=== PATIENT | male | born 1995 | race Caucasian/White ===

== ENCOUNTER 2017-09-24 00:40 | Emergency (ER) | payer SELFPAY ==
[~2017-09-24] VITALS: Ht 180.3 cm; Wt 127.0 kg
[2017-09-24 00:45] VITALS: BP 203/106; PULSE 123; RESP 14; TEMP 97.7; O2SAT 98
[2017-09-24 01:03] VITALS: BP 155/81; PULSE 103; RESP 18; O2SAT 97
--- NOTE | 2017-09-24 01:08 | PD ---
HPI Chief Complaint: Chest Pain Time Seen by Provider: 01:03 Travel History International Travel<30 days: No Contact w/Intl Traveler<30days: No Traveled to known affect area: No History of Present Illness HPI Patient is a 21-year-old male that comes in stating that he has no allergies to medication, no surgical history, and only medical history is hypertension. He states that he has been on lisinopril before but he is run out of it and he has not refilled it in several months. Now the patient comes in stating that he is noted that his blood pressure has been elevated today was 155/81. And the patient has been complaining of a constant chest discomfort, entire chest area, over the past 2 days, has been described as continuous, and made worse after smoking, rates it 5 out of 10. Patient denies any alleviating factors. Patient denies any associated factors such as fever, rash, trauma to his chest, abdominal pain, flank or back pain, nausea, vomiting, diarrhea, dysuria/urgency/hematuria present. PFSH Past Medical History Cardiovascular Problems: Yes (HTN, factor V disorder, Murmor) Hypertension: Yes Past Surgical History Surgical History: No Previous Surgery Social History Alcohol Use: No Tobacco Use: Yes (/2 PPD) Substance Use: Yes (Marijuana) Allergies-Medications (Allergen,Severity, Reaction): Coded Allergies: No Known Drug Allergies (Verified Allergy, Unknown, 09/24/17) Review of Systems General / Constitutional: No: Fever Eyes: No: Visual changes HENT: No: Headaches Cardiovascular: Positive: Chest Pain or Discomfort, Palpitations Respiratory: No: Shortness of Breath Gastrointestinal: No: Abdominal Pain Genitourinary: No: Dysuria Musculoskeletal: No: Pain Skin: No Rash Neurologic: No: Weakness Psychiatric: No: Depression Endocrine: No: Polydipsia Hematologic/Lymphatic: No: Easy Bruising Physical Exam Narrative GENERAL: SKIN: Warm and dry. HEAD: Atraumatic. Normocephalic. EYES: Pupils equal and round. No scleral icterus. No injection or drainage. ENT: No nasal bleeding or discharge. Mucous membranes pink and moist. NECK: Trachea midline. No JVD. CARDIOVASCULAR: Regular rate and rhythm. RESPIRATORY: No accessory muscle use. Clear to auscultation. Breath sounds equal bilaterally. GASTROINTESTINAL: Abdomen soft, non-tender, nondistended MUSCULOSKELETAL: Extremities without clubbing, cyanosis, or edema. No obvious deformities. Reproducible chest wall pain on palpation NEUROLOGICAL: Awake and alert. No obvious cranial nerve deficits. Motor grossly within normal limits. Five out of 5 muscle strength in the arms and legs. Normal speech. PSYCHIATRIC: Appropriate mood and affect; insight and judgment normal. Data Data Last Documented VS Vital Signs Date Time Temp Pulse Resp B/P (MAP) Pulse Ox O2 Delivery O2 Flow Rate FiO2 09/24/17 01:03 103 18 155/81 (105) 97 Room Air 09/24/17 00:45 97.7 Orders Orders Electrocardiogram (09/24/17 01:03) Complete Blood Count With Diff (09/24/17 01:03) Comprehensive Metabolic Panel (09/24/17 01:03) Creatine Kinase (Cpk) (09/24/17 01:03) Lipase (09/24/17 01:03) Urinalysis - C+S If Indicated (09/24/17 01:03) Thyroid Stimulating Hormone (09/24/17 01:03) Iv Access Insert/Monitor (09/24/17 01:03) Ecg Monitoring (09/24/17 01:03) Oximetry (09/24/17 01:03) Drug Screen, Random Urine (09/24/17 01:03) Alcohol (Ethanol) (09/24/17 01:03) Salicylates (Aspirin) (09/24/17 01:03) Tylenol (Acetaminophen) (09/24/17 01:03) Sodium Chlor 0.9% 1000 Ml Inj (Ns 1000 M (09/24/17 01:15) Chest, Pa & Lat (09/24/17 01:41) Troponin I (09/24/17 01:05) Labs Laboratory Tests Test 09/24/17 01:05 White Blood Count 11.6 TH/MM3 Red Blood Count 5.71 MIL/MM3 Hemoglobin 16.2 GM/DL Hematocrit 46.4 % Mean Corpuscular Volume 81.3 FL Mean Corpuscular Hemoglobin 28.3 PG Mean Corpuscular Hemoglobin Concent 34.8 % Red Cell Distribution Width 13.2 % Platelet Count 292 TH/MM3 Mean Platelet Volume 9.0 FL Neutrophils (%) (Auto) 59.6 % Lymphocytes (%) (Auto) 29.4 % Monocytes (%) (Auto) 7.9 % Eosinophils (%) (Auto) 2.6 % Basophils (%) (Auto) 0.5 % Neutrophils # (Auto) 6.9 TH/MM3 Lymphocytes # (Auto) 3.4 TH/MM3 Monocytes # (Auto) 0.9 TH/MM3 Eosinophils # (Auto) 0.3 TH/MM3 Basophils # (Auto) 0.1 TH/MM3 CBC Comment DIFF FINAL Differential Comment Urine Color YELLOW Urine Turbidity HAZY Urine pH 5.0 Urine Specific [place] 1.029 Urine Protein 100 mg/dL Urine Glucose (UA) NEG mg/dL Urine Ketones NEG mg/dL Urine Occult Blood NEG Urine Nitrite NEG Urine Bilirubin NEG Urine Urobilinogen 4.0 OR GREATER mg/dL Urine Leukocyte Esterase NEG Urine RBC LESS THAN 1 /hpf Urine WBC 1 /hpf Urine Mucus MANY /lpf Microscopic Urinalysis Comment CULT NOT INDICATED Blood Urea Nitrogen 15 MG/DL Creatinine 1.10 MG/DL Random Glucose 100 MG/DL Total Protein 8.4 GM/DL Albumin 4.7 GM/DL Calcium Level 9.4 MG/DL Alkaline Phosphatase 81 U/L Aspartate Amino Transf (AST/SGOT) 16 U/L Alanine Aminotransferase (ALT/SGPT) 38 U/L Total Bilirubin 0.4 MG/DL Sodium Level 142 MEQ/L Potassium Level 3.7 MEQ/L Chloride Level 106 MEQ/L Carbon Dioxide Level 25.9 MEQ/L Anion Gap 10 MEQ/L Estimat Glomerular Filtration Rate 84 ML/MIN Total Creatine Kinase 124 U/L Troponin I LESS THAN 0.02 NG/ML Lipase 86 U/L Thyroid Stimulating Hormone 3rd Gen 4.140 uIU/ML Salicylates Level 2.0 MG/DL Urine Opiates Screen NEG Acetaminophen Level LESS THAN 2.0 MCG/ML Urine Barbiturates Screen NEG Urine Amphetamines Screen NEG Urine Benzodiazepines Screen NEG Urine Cocaine Screen NEG Urine Cannabinoids Screen POS Ethyl Alcohol Level LESS THAN 3 MG/DL MDM Medical Decision Making Medical Screen Exam Complete: Yes Emergency Medical Condition: Yes Medical Record Reviewed: Yes Interpretation(s) Sinus tachycardia at 110 bpm, normal intervals, no evidence of any ST elevation [place] pattern noted. Differential Diagnosis Pneumothorax versus pneumonia versus pericarditis versus pancreatitis versus liver versus tox screen related versus STEMI Narrative Course CBC shows no leukocytosis, no anemia, normal platelet count, no left shift Electrolytes are all within normal limits, normal kidney liver and pancreatic enzymes. First set of cardiac enzymes are negative Patient's TSH is high at 4.14 suggestive of hypothyroidism Toxicologies positive for marijuana UA is negative for any UTI Chest x-ray read by radiologist as negative examination Diagnosis Primary Impression: Atypical chest pain Additional Impression: Possible hypothyroidism Referrals: [facility] Patient Instructions: General Instructions, Hypothyroidism (ED), Noncardiac Chest Pain (ED) Additional Instructions: Your advised to contact the [place] [facility] to have further evaluation for your thyroid Disposition: 01 DISCHARGE HOME Condition: Stable Armaan Tavares MD Sep 24, 2017 01:08
[2017-09-24] MEDS ORDERED: SODIUM CHLOR 0.9% 1000 ML INJ 1,000 ML IV ONE (01:15)
[2017-09-24 01:24] LABS: AUTOMATED NEUTROPHIL # 6.9 TH/MM3 (1.8-7.7); BASOPHIL # 0.1 TH/MM3 (0-0.2); BASOPHIL % 0.5 % (0.0-2.0); EOSINOPHIL # 0.3 TH/MM3 (0-0.4); EOSINOPHIL % 2.6 % (0.0-4.0); HEMATOCRIT 46.4 % (39.0-51.0); HEMOGLOBIN 16.2 GM/DL (13.0-17.0); LYMPH % 29.4 % (9.0-44.0); LYMPHOCYTE # 3.4 TH/MM3 (1.0-4.8); MEAN CELL VOLUME 81.3 FL (80.0-100.0); MEAN CORPUSCULAR HEMOGLOBIN 28.3 PG (27.0-34.0); MEAN CORPUSCULAR HGB CONC 34.8 % (32.0-36.0); MONO % 7.9 % (0.0-8.0); MONOCYTE # 0.9 TH/MM3 (0-0.9); NEUT % 59.6 % (16.0-70.0); PLATELET COUNT 292 TH/MM3 (150-450); RED BLOOD COUNT 5.71 MIL/MM3 (4.50-5.90); RED CELL DISTRIBUTION WIDTH 13.2 % (11.6-17.2); WHITE BLOOD COUNT 11.6 TH/MM3 (4.0-11.0)
[2017-09-24 01:28] LABS: BILIRUBIN, URINE NEG (NEG); BLOOD, URINE NEG (NEG); GLUCOSE,URINE NEG (NEG); KETONE, URINE NEG (NEG); MUCUS URINE MANY /lpf (OCC); NITRITE,URINE NEG (NEG); URINE COLOR YELLOW (YELLW/STRAW); URINE LEUKOCYTE ESTERASE NEG (NEG)
[2017-09-24 01:39] LABS: ALBUMIN 4.7 GM/DL (3.4-5.0); ALT (GPT) 38 U/L (12-78); AST (GOT) 16 U/L (15-37); BICARBONATE 25.9 MEQ/L (21.0-32.0); BLOOD UREA NITROGEN 15 MG/DL (7-18); CALCIUM 9.4 MG/DL (8.5-10.1); CHLORIDE 106 MEQ/L (98-107); GLOMERULAR FILTRATION RATE 84 ML/MIN (>89); GLUCOSE,RANDOM 100 MG/DL (74-106); SODIUM (NA) 142 MEQ/L (136-145)
[2017-09-24 01:48] LABS: ALKALINE PHOSPHATASE 81 U/L (45-117); TOTAL BILIRUBIN ADULT 0.4 MG/DL (0.2-1.0); TOTAL PROTEIN 8.4 GM/DL (6.4-8.2)
[2017-09-24 01:53] LABS: ACETAMINOPHEN LESS THAN 2.0 MCG/ML (10.0-30.0)
--- NOTE | 2017-09-24 02:12 | RADRPT ---
EXAM DATE: 09/24/2017 2:07 AM EDT AGE/SEX: 21 years / Male INDICATIONS: Pressure to anterior chest for several weeks. CLINICAL DATA: This is the patient's initial encounter. Patient reports that signs and symptoms have been present for 1 day and indicates a pain score of 5/10. MEDICAL/SURGICAL HISTORY: None. None. COMPARISON: No prior exams available for comparison. FINDINGS: PA and lateral views of the chest demonstrate the lungs to be symmetrically aerated without evidence of mass, infiltrate or effusion. The cardiomediastinal contours are unremarkable. Osseous structures are intact. CONCLUSION: Negative examination. Electronically signed by: Sly Dubon MD 09/24/2017 2:11 AM EDT
[2017-09-24 02:34] LABS: TROPONIN I LESS THAN 0.02 NG/ML (0.02-0.05)
[2017-09-24] MEDS ORDERED: TRAM50 PO (03:03)
[2017-09-24] MEDS ORDERED: LISI10TA3 PO (03:07)
--- NOTE | 2017-09-24 17:43 | EKG ---
Date Performed: 09/24/2017 Time Performed: 00:55:36 PTAGE: 21 years EKG: SINUS TACHYCARDIA ABNORMAL RHYTHM ECG NO PREVIOUS TRACING DOCTOR: Nikole Goldman Interpretating Date/Time 09/24/2017 17:41:05
== END 2017-09-24 03:57 | disposition home or self-care (01) ==
LOC: NEPC 00:40
DX: R07.89 Other chest pain (principal); R00.0 Tachycardia, unspecified; R94.31 Abnormal electrocardiogram [ECG] [EKG]; I10 Essential (primary) hypertension; D68.51 Activated protein C resistance; R01.1 Cardiac murmur, unspecified; F12.90 Cannabis use, unspecified, uncomplicated; F17.200 Nicotine dependence, unspecified, uncomplicated
CPT/HCPCS: 71046; 80053; 80307; 81001; 82550; 83690; 84443; 84484; 85025; 93005; 99285; J7030